=== PATIENT | male | born 1995 | race African-American/Black ===

== ENCOUNTER 2024-04-14 11:08 | Emergency (ER) | payer MEDICAID, MEDICARE ==
[~2024-04-14] VITALS: Ht 172.7 cm; Wt 85.0 kg
[2024-04-14 11:10] VITALS: TEMP 98.2; O2SAT 100
[2024-04-14] MEDS: SODIUM CHLORIDE 0.9% 1,000 ML IV ONE (11:38)
[2024-04-14] MEDS: MAGNESIUM/ALUMINUM HYDROXIDE/SIMETHICONE 30ML UDC PO STA (11:38)
[2024-04-14] MEDS: DICYCLOMINE 10 MG/5 ML ORAL SYR PO STA (11:38)
[2024-04-14 12:40] LABS: BASOPHILS % 1.4 % (0.0-2.0); EOSINOPHILS % 1.7 % (0.0-5.0); HEMATOCRIT. 35.1 % (42.0-52.0); HEMOGLOBIN. 11.7 g/dL (14.0-18.0); LYMPHOCYTES % 24.6 % (20.0-50.0); MEAN CORPUSCULAR HEMOGLOBIN 31.1 pg (28.0-32.0); MEAN CORPUSCULAR HGB CONC 33.4 g/dL (31.0-37.0); MEAN CORPUSCULAR VOLUME 92.8 fL (80.0-94.0); MEAN PLATELET VOLUME 8.2 fl (7.4-10.4); MONOCYTES % 14.3 % (2.0-8.0); PLATELET 334 x1000/uL (130-400); RED BLOOD CELL COUNT 3.78 mill/uL (4.7-6.1); RED CELL DISTRIBUTION WIDTH 15.2 % (11.6-14.6); WHITE BLOOD COUNT 6.3 x1000/uL (4.5-11.0)
[2024-04-14 12:47] LABS: CHLORIDE 106 mEq/L (98-107); POTASSIUM 3.6 mEq/L (3.5-5.1); SODIUM 136 mEq/L (136-145)
[2024-04-14 12:48] LABS: CALCIUM 9.8 mg/dL (8.7-10.4); CARBON DIOXIDE 23 mEq/L (21-32)
[2024-04-14 12:53] LABS: GLUCOSE 115 mg/dL (70-105); UREA NITROGEN BLOOD 15 mg/dL (9-23)
[2024-04-14 13:06] LABS: TROPONIN I HIGH SENSITIVITY < 4 ng/L (3.0-53)
[2024-04-14 13:45] VITALS: O2SAT 100
[2024-04-14] MEDS ORDERED: APIX5TAB MT (13:55)
[2024-04-14 14:13] VITALS: BP 152/77; PULSE 55; RESP 20
[2024-04-14] MEDS: HYDROCODONE/ACETAMINOPHEN 5/325MG TABLET PO ONE (14:13)
[2024-04-14] MEDS: APIXABAN 5 MG TABLET PO ONE (14:13)
[2024-04-14] MEDS: IOHEXOL-350 100 ML BOTTLE ONE (14:33)
== END 2024-04-14 14:51 | disposition home or self-care (01) ==
LOC: ER 11:32
DX: I26.99 Other pulmonary embolism without acute cor pulmonale (principal)
CPT/HCPCS: 99285; 71275; 71045; 80048; 83880; 85025; 85379; 84484; 36415; 93005; Q9967; J7030